=== PATIENT | female | born 1995 | race African-American/Black ===

== ENCOUNTER 2018-03-13 10:33 | Emergency (ER) | payer MEDICARE, MEDICAID ==
[~2018-03-13] VITALS: Ht 157.5 cm; Wt 53.0 kg
[2018-03-13] MEDS ORDERED: ACETAMINOPHEN WITH CODEINE 300/30MG TABLET PO STA (12:16)
[2018-03-13 12:34] LABS: BASOPHILS % 1.3 % (0.0-2.0); HEMATOCRIT. 23.7 % (36.0-48.0); HEMOGLOBIN. 8.3 g/dL (12.0-16.0); LYMPHOCYTES % 30.1 % (20.0-50.0); MONOCYTES % 11.7 % (2.0-8.0); NEUTROPHILS % 52.9 % (40.0-76.0); RED BLOOD CELL COUNT 2.76 mill/uL (4.2-5.4); RED CELL DISTRIBUTION WIDTH 20.9 % (11.6-14.6)
[2018-03-13 12:40] LABS: CHLORIDE 105 mEq/L (98-107)
[2018-03-13 13:05] LABS: PLATELET 261 x1000/uL (130-400); PLATELET ESTIMATE NORMAL
[2018-03-13 13:06] LABS: MEAN PLATELET VOLUME 8.9 fl (7.4-10.4)
[2018-03-13] MEDS ORDERED: MORPHINE SULFATE 10 MG/ML CPJ IM ONE (15:00)
[2018-03-13 15:14] LABS: CLARITY URINE CLEAR (CLEAR); COLOR URINE YELLOW (YELLOW); KETONES URINE NEGATIVE (NEGATIVE); LEUKOCYTE ESTERASE URINE NEGATIVE (NEGATIVE); NITRITE URINE NEGATIVE (NEGATIVE); OCCULT BLOOD URINE TRACE (NEGATIVE); PROTEIN URINE NEGATIVE (NEGATIVE); SPECIFIC GRAVITY URINE 1.012 (1.005-1.030); UROBILINOGEN URINE 0.2 E.U./dL (0.2-1.0)
[2018-03-13 15:32] VITALS: BP 120/72
== END 2018-03-13 16:02 | disposition home or self-care (01) ==
LOC: ER 10:33
DX: R10.13 Epigastric pain (principal); D57.1 Sickle-cell disease without crisis; R94.31 Abnormal electrocardiogram [ECG] [EKG]; Z98.890 Other specified postprocedural states
CPT/HCPCS: 36415; 71045; 74018; 80053; 81003; 81025; 85025; 93005; 96372; 99285; J2270

== ENCOUNTER 2019-08-06 16:52 | Emergency (ER) | payer MEDICARE, MEDICAID ==
[~2019-08-06] VITALS: Ht 157.5 cm; Wt 55.0 kg
[2019-08-06] MEDS ORDERED: SODIUM CHLORIDE 0.9% 1,000 ML IV ONE (18:10)
[2019-08-06] MEDS ORDERED: MAGNESIUM/ALUMINUM HYDROXIDE/SIMETHICONE 30ML UDC PO ONE (18:15)
[2019-08-06] MEDS ORDERED: VISCOUS LIDOCAINE 2% 15 ML UDC PO ONE (18:15)
[2019-08-06 18:37] LABS: HEMATOCRIT. 22.8 % (36.0-48.0); HEMOGLOBIN. 8.1 g/dL (12.0-16.0); MEAN CORPUSCULAR HEMOGLOBIN 30.5 pg (28.0-32.0); MEAN CORPUSCULAR VOLUME 85.5 fL (81.0-99.0); MEAN PLATELET VOLUME 9.1 fl (7.4-10.4); PLATELET 319 x1000/uL (130-400); RED BLOOD CELL COUNT 2.67 mill/uL (4.2-5.4); RED CELL DISTRIBUTION WIDTH 23.4 % (11.6-14.6)
[2019-08-06 18:39] LABS: CHLORIDE 106 mEq/L (98-107); PROTHROMBIN TIME 10.7 sec (9.6-11.0)
[2019-08-06 19:59] LABS: NUCLEATED RED BLOOD CELLS 2 /100 WBC; PLATELET ESTIMATE NORMAL
[2019-08-06 23:00] VITALS: BP 134/76
== END 2019-08-07 00:28 | disposition home or self-care (01) ==
LOC: ER 16:52
DX: R10.13 Epigastric pain (principal); Z90.49 Acquired absence of other specified parts of digestive tract
CPT/HCPCS: 36415; 71045; 80053; 85025; 85610; 93005; 99284; J7030

== ENCOUNTER 2019-08-17 13:31 | Emergency (ER) | payer MEDICARE, MEDICAID ==
[~2019-08-17] VITALS: Ht 162.6 cm; Wt 55.0 kg
[2019-08-17] MEDS ORDERED: KETOROLAC 30MG/ML VIAL IV STA (21:14)
[2019-08-17] MEDS ORDERED: SODIUM CHLORIDE 0.9% 1,000 ML IV ONE (21:14)
[2019-08-17] MEDS ORDERED: ONDANSETRON HCL 4MG/2ML INJ IV STA ×2 (21:14→23:41)
[2019-08-17 21:36] LABS: CLARITY URINE CLEAR (CLEAR); COLOR URINE YELLOW (YELLOW); KETONES URINE NEGATIVE (NEGATIVE); LEUKOCYTE ESTERASE URINE TRACE (NEGATIVE); NITRITE URINE NEGATIVE (NEGATIVE); OCCULT BLOOD URINE NEGATIVE (NEGATIVE); PROTEIN URINE TRACE (NEGATIVE); SPECIFIC GRAVITY URINE 1.012 (1.005-1.030)
[2019-08-17 21:59] LABS: HEMOGLOBIN. 7.7 g/dL (12.0-16.0); MEAN CORPUSCULAR HEMOGLOBIN 30.1 pg (28.0-32.0); MEAN CORPUSCULAR VOLUME 85.9 fL (81.0-99.0); MEAN PLATELET VOLUME 9.1 fl (7.4-10.4); PLATELET 214 x1000/uL (130-400); RED BLOOD CELL COUNT 2.56 mill/uL (4.2-5.4); RED CELL DISTRIBUTION WIDTH 21.2 % (11.6-14.6)
[2019-08-17 22:02] LABS: CHLORIDE 105 mEq/L (98-107)
[2019-08-17 22:39] LABS: PLATELET ESTIMATE NORMAL
[2019-08-17] MEDS ORDERED: MORPHINE SULFATE 4 MG/ML CPJ (NOT FOR IM USE) IV STA (23:41)
[2019-08-18] MEDS ORDERED: CEFTRIAXONE 1 G PREMIX 50 ML IV ONE (00:30)
[2019-08-18 01:50] VITALS: BP 107/58
== END 2019-08-18 01:50 | disposition home or self-care (01) ==
LOC: ER 13:31
DX: D57.00 Hb-SS disease with crisis, unspecified (principal); N30.00 Acute cystitis without hematuria
CPT/HCPCS: 36415; 74176; 80053; 81003; 81025; 83690; 85025; 85044; 96361; 96365; 96375; 96376; 99284; J0696; J1885; J2270; J2405; J7030

== ENCOUNTER 2019-11-24 15:33 | Emergency (ER) | payer MEDICARE, MEDICAID ==
[~2019-11-24] VITALS: Ht 157.5 cm; Wt 57.0 kg
[2019-11-24] MEDS ORDERED: IBUPROFEN 600MG TABLET PO ONE (17:00)
[2019-11-24 17:26] LABS: CLARITY URINE CLOUDY (CLEAR); COLOR URINE YELLOW (YELLOW); KETONES URINE NEGATIVE (NEGATIVE); LEUKOCYTE ESTERASE URINE 3+ (NEGATIVE); NITRITE URINE NEGATIVE (NEGATIVE); OCCULT BLOOD URINE 3+ (NEGATIVE); PH URINE 6.5 (4.5-8.0); PROTEIN URINE 1+ (NEGATIVE); SPECIFIC GRAVITY URINE 1.012 (1.005-1.030)
[2019-11-24 17:35] VITALS: BP 115/69
[2019-11-28] MEDS ORDERED: FOLI0.4T2 MT (12:55)
== END 2019-11-24 19:14 | disposition home or self-care (01) ==
LOC: ER 15:33
DX: N12 Tubulo-interstitial nephritis, not specified as acute or chronic (principal); D57.1 Sickle-cell disease without crisis
CPT/HCPCS: 81003; 81025; 87077; 87186; 99283